=== PATIENT | female | born 1955 | race Caucasian/White ===

== ENCOUNTER 2020-03-21 01:00 | Emergency (ER) | payer MEDICAID ==
[~2020-03-21] VITALS: Ht 157.5 cm; Wt 65.9 kg
[2020-03-21 01:11] VITALS: BP 150/98
--- NOTE | 2020-03-21 01:59 | NUR ---
ECG ordered after notifiying Dr Diaz
[2020-03-21] MEDS ORDERED: normal saline 1000ML IV soln IVB ONE (02:20)
[2020-03-21] MEDS ORDERED: magnesium citrate 296ml oral solution PO ONE (02:20)
--- NOTE | 2020-03-21 02:30 | NUR ---
dr Pak nursing ordered sopa suds enema. tolerated well with result of large amount of stool and began urinating. Tolerated enema well.
== END 2020-03-21 03:39 | disposition home or self-care (01) ==
LOC: ER 01:02
DX: K59.00 Constipation, unspecified (principal); R10.30 Lower abdominal pain, unspecified
CPT/HCPCS: 74018; 93005; 96360; 99284; J7030